=== PATIENT | male | born 1990 | race Hispanic/Latino ===

== ENCOUNTER 2018-10-28 19:24 | Emergency (ER) | payer OTHER ==
[2018-10-28 19:41] VITALS: BP 134/83; TEMP 98.9; O2SAT 96
[2018-10-28] MEDS ORDERED: Tdap Vaccine 0.5 ml Vial (10-64 yrs) IM ONE (19:57)
[2018-10-28] MEDS ORDERED: Lidocaine 1% Inj (20ml) IJ STA (19:57)
--- NOTE | 2018-10-28 20:10 | ED PDOC ---
HPI: Skin/Bite Injury Time Seen by Provider: 10/28/18 19:43 Chief Complaint (Nursing): Abnormal Skin Integrity Chief Complaint (Provider): Laceration History Per: Patient History/Exam Limitations: no limitations Onset/Duration Of Symptoms: Mins (x30) Current Symptoms Are (Timing): Still Present Additional Complaint(s): 28 y/o male presents to the ED after cutting left thumb with a butter knife while cooking food at around 19:15 tonight. Patient states he is able to bend his finger. He wrapped the thumb, applied pressure and came here. He states tetanus vaccination is not UTD. Denies other injuries, numbness or tingling. PMD: none Past Medical History Reviewed: Historical Data, Nursing Documentation, Vital Signs Vital Signs: Last Vital Signs Temp 98.9 F 10/28/18 19:39 Pulse 108 H 10/28/18 19:39 Resp 16 10/28/18 19:39 BP 134/83 10/28/18 19:39 Pulse Ox 96 10/28/18 19:39 - Medical History PMH: No Chronic Diseases - Surgical History Surgical History: No Surg Hx - Family History Family History: States: Unknown Family Hx - Allergies Allergies/Adverse Reactions: Allergies Allergy/AdvReac Type Severity Reaction Status Date / Time No Known Allergies Allergy Verified 10/28/18 19:41 Review of Systems ROS Statement: Except As Marked, All Systems Reviewed And Found Negative Musculoskeletal: Positive for: Other (Left thumb laceration) Physical Exam - Reviewed Nursing Documentation Reviewed: Yes Vital Signs Reviewed: Yes - Physical Exam Comments: GENERAL APPEARANCE: Patient is awake, alert, oriented x 3, in no acute distress. SKIN: Warm, dry; (-) cyanosis. CHEST AND RESPIRATORY: (-) chest wall tenderness. Lungs: (-) rales, (-) rhonchi, (-) wheezes; breath sounds equal bilaterally. HEART AND CARDIOVASCULAR: (-) irregularity; (-) murmur, (-) gallop. LEFT HAND: 1.5cm linear superficial laceration to the palmar aspect of the left thumb, below joint, motor and sensation intact, no foreign body, mild active bleeding, (+)flexion and extension intact, NVI NEURO AND PSYCH: Mental status as above. - ECG O2 Sat by Pulse Oximetry: 96 (RA) Pulse Ox Interpretation: Normal Medical Decision Making Medical Decision Making: Initial Impression: laceration Initial Plan: --Digital block --Laceration repair --Tetanus vaccination digital block, Laceration repair and wound irrigation done by me, pt tolerated well Wound cleaned, and dressed Discussed diagnosis, treatment, wound care, return precautions and f/u with pt who is understanding, in agreement and stable for dc Scribe Attestation: Documented by Tj Barker acting as a scribe for Neftali MORA. Provider Scribe Attestation: All medical record entries made by the Scribe were at my direction and pe rsonally dictated by me. I have reviewed the chart and agree that the record accurately reflects my personal performance of the history, physical exam, medical decision making, and the department course for this patient. I have also personally directed, reviewed, and agree with the discharge instructions and disposition. Disposition - Clinical Impression Clinical Impression: Laceration of thumb - Patient ED Disposition Is Patient to be Admitted: No Counseled Patient/Family Regarding: Studies Performed, Diagnosis, Need For Followup - Disposition Referrals: your, doctor [Other] Disposition: Routine/Home Disposition Time: 21:23 Condition: STABLE Additional Instructions: Return to ED or your doctor in 10-12 days for suture removal Keep wound clean, dry and covered. Apply neosporin/bacitracin 1-2 times a day. Do not get wet for 24 hours, then do not soak in water. Return to ED for new or worsening symptoms, fever >100.4, increase redness or swelling, foul odor or drainage from wound. Thank you for letting us take care of you today. The emergency medical care you received today was directed at your acute symptoms. If you were prescribed any medication, please fill it and take as directed. It may take several days for your symptoms to resolve. Return to the Emergency Department if your symptoms worsen, do not improve, or if you have any other problems. Please contact your doctor in 2 days for re-evaluation and follow up / or call one of the physicians/clinics you have been referred to that are listed on the Patient Visit Information form that is included in your discharge packet. Bring any paperwork you were given at discharge with you along with any medications you are taking to your follow up visit. Our treatment cannot replace ongoing medical care by a primary care provider (PCP) outside of the emergency department. Instructions: Wound Care (DC), Laceration Repair With Stitches (DC) Print Language: CAMEROONIAN - POA Present On Arrival: None Procedures - Laceration/Wound Repair Left Hand Wound Length (cm): 1.5 Wound's Depth, Shape: superficial, linear Wound Explored: no foreign body removed Irrigated w/ Saline (ccs): 250 Anesthesia: 1% Lidocaine Volume Anesthetic (ccs): 5 Wound Repaired With: Sutures Suture Size/Type: 5:0, proline Number of Sutures: 4 Wound Complexity: Simple Sterile Dressing Applied?: Yes
[2018-10-28 21:42] VITALS: PULSE 66; RESP 18
== END 2018-10-28 21:41 | disposition home or self-care (01) ==
LOC: H.ER 19:24
DX: S61.012A Laceration without foreign body of left thumb without damage to nail, initial encounter (principal); W26.0XXA Contact with knife, initial encounter; Y93.G9 Activity, other involving cooking and grilling; Z23 Encounter for immunization